=== PATIENT | female | born 1990 | race Caucasian/White ===

== ENCOUNTER → 2016-12-14 | Outpatient (REF) | payer OTHER | LOC: M LAB REF 16:57 | PROVIDERS: ATTEND Advanced Practice Midwife | DX: Z11.3 Encounter for screening for infections with a predominantly sexual mode of transmission (principal) ==

== ENCOUNTER → 2018-04-03 | Outpatient (REF) | payer OTHER | LOC: M LAB REF 18:27 | DX: Z12.4 Encounter for screening for malignant neoplasm of cervix (principal); R87.612 Low grade squamous intraepithelial lesion on cytologic smear of cervix (LGSIL) | CPT/HCPCS: G0123 ==

== ENCOUNTER → 2018-04-23 | Outpatient (REF) | payer OTHER | LOC: M LAB REF 13:06 | DX: R87.612 Low grade squamous intraepithelial lesion on cytologic smear of cervix (LGSIL) (principal) | CPT/HCPCS: 88304 ==

== ENCOUNTER → 2019-05-20 | Outpatient (REF) | payer BC | LOC: M LAB LCGH 11:43 | PROVIDERS: ATTEND Obstetrics & Gynecology | DX: Z34.90 Encounter for supervision of normal pregnancy, unspecified, unspecified trimester (principal) | CPT/HCPCS: 87624; G0123 ==